=== PATIENT | female | born 1960 | race Hispanic/Latino ===

== ENCOUNTER 2016-08-09 05:49 | Day surgery (SDC) | payer OTHER ==
[~2016-08-09] VITALS: Ht 157.5 cm; Wt 71.5 kg
[2016-08-09] VITALS (8 sets, daily range): BP systolic 104–161; BP diastolic 62–84; PULSE 69–81; RESP 11–22; O2SAT 78–100
[~2016-08-09 05:49] MED LIST: IBUP-1827 PO; Lactated Ringer's 1,000 ML IV SCH; MEDR10TA PO; METH750T3 PO
[2016-08-09] MEDS ORDERED: Dexamethasone 4 mg/mL Inj ONE (05:50)
[2016-08-09] MEDS ORDERED: fentaNYL-PF 50 mCg/mL 2 mL Inj ONE (05:50)
[2016-08-09] MEDS ORDERED: Ondansetron 2 mg/mL 2 mL Inj ONE (05:50)
[2016-08-09] MEDS ORDERED: Propofol 10,000 mCg/mL 20 mL Inj ONE (05:50)
[2016-08-09] MEDS ORDERED: Lidocaine PF 1% 30 mL Inj ONE (05:50)
[2016-08-09 06:51] LABS: BASOPHILS % (AUTO) 0.5 % (0-3); EOSINOPHILS % (AUTO) 2.8 % (0-5); MONOCYTES % (AUTO) 12.9 % (4-12); Mean Corpuscular Hemoglobin 29.7 pg (27.0-35.0); Mean Corpuscular Volume 90.4 fL (81-100); NEUTROPHILS % (AUTO) 48.3 % (40-74); Platelet Count 254 bil/L (150-400)
[2016-08-09] MEDS ORDERED: Levonorgestrel 20 mcg/24 hr IUD INTRAUTERI ONE (06:56)
[2016-08-09] MEDS ORDERED: Lactated Ringer's 500 ML IV PRN (07:24)
[2016-08-09] MEDS ORDERED: Lactated Ringer's 1,000 ML IV SCH (07:24)
--- NOTE | 2016-08-09 07:24 | PCM.HPANE ---
Patient Data Date of Service: Aug 09, 2016 Surgeon Admitting Provider: Attending Provider:Erin Howell MD Primary Care Physician:Iram Arcos Other Provider:Madelin Duran Anesthesia Reason for Visit Simple Endometrial Hyperplasia,Heavy Menses Ht/WT & BMI Height (Feet): 5 Height (Inches): 2.00 Weight (Kilograms): 71.500 Body Mass Index 29.00 Allergies Coded Allergies: lactose (Verified Allergy, Unknown, 08/08/16) Past Anesthesia History Anesthesia History: Denies:: Abnormal Airway, Anesthesia Reactions, Difficult Intubation, Fam Anesthesia Reaction Diabetes History Hx Diabetes?: No MRSA MRSA: No Medications Hypertension Medication: No Home Meds Incl Beta [place]: No Reported Medications Medroxyprogesterone Acetate (Provera)10 Mg [id number] Mg PO DAILY 08/08/16 Methocarbamol 750 Mg [id number] Mg PO QID PRN For Spasm Ref 0 08/08/16 Ibuprofen 600 Mg [id number] Mg PO TID PRN For Pain Ref 0 08/08/16 History History of ENT Problems?: No HEENT History: Denies:: Abnormal Airway Cataracts Difficult Intubation Dysphagia Glaucoma Hearing Problem Sinus Problem TMJ Hx of Heart Problems?: No Cardiovascular History: Positive for:: Hypertension (pt states she has high bp , takes no meds for) Denies:: AICD Edema Heart Murmur Irregular Heartbeat Pacemaker Peripheral Vascular Rheumatic Fever Thrombophlebitis Valvular Heart Disease Hx of Respiratory Problem?: No Respiratory History: Denies:: Asthma COPD Emphysema Oxygen Administration Pneumonia Tuberculosis Use of C-PAP Machine Use of Inhalers / NEBS Hx Neurologic Problems?: Yes Neurological History: Positive for:: Headaches (hx of migraines) Denies:: CVA Multiple Sclerosis Parkinson's Disease Seizures TIA Hx of GI Problems?: No Gastrointestinal History: Denies:: Cirrhosis Gall Bladder Disease Gastrointestinal Bleeding Heartburn Hepatitis Hiatal Hernia Liver Disease Hx of Problems?: No Genitourinary History: Denies:: Kidney Stones Urinary Tract Infection Female Hx: Denies:: Currently Skin History: Denies:: History Skin Disorders? Pressure Ulcers Hx Musculoskeletal Problems?: Yes Musculoskeletal History: Positive for:: Osteoarthritis Denies:: Back Injury Fibromyalgia Joint Replacement Musculoskeletal Trauma Myasthenia Gravis Hx of Psycho/Social Problems?: No Psycho Social History: Denies:: Anxiety Hx Depression Hx Surgeries?: Yes (biopsy, tubal ligation) Hx Any Other Health Problems?: Yes Other History: Denies:: Cancer Thyroid Disease History Blood Transfusions: Positive for:: Accept Blood Products? Denies:: Blood Transfusions Hx Diabetes: No Hx Alcohol Use: NoHx Substance Use: NoHave You Smoked inLast 12 mo: No Stop/Bang S-Snoring: Do You Snore Loudly: No T-Tired: feel tired, fatigued: No O-Obsered: Observed not breath: No P-Blood Pressure: treated: No B- Body Mass Index > 35 kg/m2: No A- Age over 50: Yes N- Neck Large Circumference: No G- Gender Male: No JOSÉ LUIS Total Score: 1 JOSÉ LUIS Risk Assessment: Low Risk, <3 Yes Risk Assessment Category Category 1A: Patient has history of documented sleep apnea, and HAS NOT received any narcotic, sedative or anesthesia administration during this stay. Category 1B: Patient has history of documented sleep apnea, and HAS received any narcotic , sedative or anesthesia administration during this stay Category 2: Patient has SUSPECTED Obstructive Sleep Apnea, and HAS received any narcotic , sedative or anesthesia administration during this stay. Category 3: Patient has SUSPECTED Obstructive Sleep Apnea and HAS NOT received narcotic, sedative or anesthesia administration during this stay. Category 4: Outpatient in Procedural Areas with known sleep apnea or who screen positive for High Risk via the STOP/BANG questionnaire. Exam Exam Vital Signs Vital Signs Date Time Temp Pulse Resp B/P Pulse Ox O2 Delivery O2 Flow Rate FiO2 08/09/16 06:05 36.3 74 16 161/83 99 Room Air General Appearance: Alert, Oriented X3, Cooperative, No Acute Distress HEENT/AIRWAY: MP 2 Lungs: Normal Air Movement Heart: Exam Unremarkable Meds/Labs/Diagnostics Labs Test 08/09/16 06:25 White Blood Count 5.8th/mm3 (3.8-10.1) Red Blood Count 4.71mil/mm3 (3.90-5.20) Hemoglobin 14.0g/dL (12.0-15.6) Hematocrit 42.6% (35.0-46.0) Mean Corpuscular Volume 90.4fL (81-100) Mean Corpuscular Hemoglobin 29.7pg (27.0-35.0) Mean Corpuscular Hemoglobin Concent 32.9% (32.0-37.0) Red Cell Distribution Width 13.7% (12.3-15.4) Platelet Count 254bil/L (150-400) Neutrophils (%) (Auto) 48.3% (40-74) Lymphocytes (%) (Auto) 35.3% (14-46) Monocytes (%) (Auto) 12.9% (4-12) Eosinophils (%) (Auto) 2.8% (0-5) Basophils (%) (Auto) 0.5% (0-3) Plan Impression Patient chart reviewed, patient interviewed and anesthestic plan with risks, benefits, and alternatives discussed, and informed consent obtained. NPO Status: 08/08 at 1900 ASA Physical Status: ASA2 Mod Systemic Disease Anesthetic Plan: GA Bene/Risks/Altern/Consents: Yes HP Complete Prior to Induction: Yes Sundar Wetzel MD Aug 09, 2016 07:24
[2016-08-09] MEDS ORDERED: Ondansetron 2 mg/mL 2 mL Inj IVPUSH PRN ×2 (07:25→08:15)
[2016-08-09] MEDS ORDERED: Labetalol 5 mg/mL 4 mL Inj IV PRN (07:25)
[2016-08-09] MEDS ORDERED: Dexamethasone 4 mg/mL Inj IVPUSH PRN (07:25)
[2016-08-09] MEDS ORDERED: Phenylephrine 10,000 mCg/mL Inj IVPUSH PRN (07:25)
[2016-08-09] MEDS ORDERED: HYDROmorphone 1 mg/mL Inj IVPUSH PRN (07:25)
[2016-08-09] MEDS ORDERED: Atropine 0.4 mg/mL Inj IVPUSH PRN (07:25)
[2016-08-09] MEDS ORDERED: EPHEDrine Sulfate 50 mg/mL Inj IVPUSH PRN (07:25)
[2016-08-09] MEDS ORDERED: hydrALAZINE 20 mg/mL Inj IVPUSH PRN (07:25)
[2016-08-09] MEDS ORDERED: MetoCLOpramide 5 mg/mL 2 mL Inj IVPUSH PRN ×2 (07:25→08:15)
[2016-08-09] MEDS ORDERED: fentaNYL-PF 50 mCg/mL 2 mL Inj IVPUSH PRN (07:25)
[2016-08-09] MEDS ORDERED: oxyCODONE-Acetamin 5-325 mg Tablet PO PRN (08:15)
--- NOTE | 2016-08-09 08:18 | PCM.ANEP1 ---
Post Anesthesia Phase 1 PACU Phase 1 Assessment Date of Service: Aug 09, 2016 Vital Signs Vital Signs Date Time Temp Pulse Resp B/P Pulse Ox O2 Delivery O2 Flow Rate FiO2 08/09/16 08:15 76 12 111/66 97 Nasal Cannula 2 08/09/16 08:09 37.0 78 11 104/62 96 Nasal Cannula 2 08/09/16 06:05 36.3 74 16 161/83 99 Room Air Anesthetic Administered: GA Level of Alertness: Drowsy, not talking Pain: No Nausea or Vomiting: No Oxygen Delivery: Nasal Cannula Lungs: Normal Air Movement Sundar Wetzel MD Aug 09, 2016 08:18
--- NOTE | 2016-08-09 08:18 | PCM.DIGYN ---
Surgical Discharge Instruction Dates of Hospitalization Date of Hospital Admission 08/09/16 Providers Admitting Physician: Primary Care Physician: Iram Arcos Attending Physician: Erin Howell MD Diagnosis at Time of Discharge Diagnosis at time of discharge abnormal vaginal delivery small endometrial polyps Post-operative diagnosis abnormal vaginal delivery small endometrial polyps Problems: Diet Discharge Diet: No restrictions Activity Discharge Activity-General: Try not to overdue Dressing and Incisional Care Hygiene: May shower, NO bathtub, hot tub or whirlpool Additional Instructions Discharge Instructions Please call office or go to ER if heavy vaginal bleeding, severe abdominal pain , foul smelling discharge, fever more than 100.4 or short of breath. Follow Up Plan Follow Up Plan 2 weeks after the procedure Follow-up Provider (F9): Erin Howell MD Follow-up appointment: Weeks (2) Call your provider for: Fever, Chills, Shortness of breath, Heavy vaginal bleeding, Increasing pain Erin Howell MD Aug 09, 2016 08:18
--- NOTE | 2016-08-09 08:46 | PCM.ANEP2 ---
Post Anesthesia Evaluation ASA/CMS Post Anesthesia Date of Service: Aug 09, 2016 VS in Patient's Normal Range?: Yes Resp Stable; Airway Patent?: Yes CV Function & Hydration Stable: Yes Mental Status Recovered?: Yes Pain control Satisfactory?: Yes N/V Control Satisfactory?: Yes Sundar Wetzel MD Aug 09, 2016 08:46
--- NOTE | 2016-08-09 08:48 | DIS ---
[address] [address] DISCHARGE SUMMARY PATIENT: DAMASO AGUILAR : 1960 MR#: [id number] ADMIT: 08/09/2016 JOB ID: [id number] DIS: DATE: 08/09/2016 NARRATIVE: This is a 46-year-old female. She is coming today for a scheduled hysteroscopy, D and C, and Mirena IUD placement for abnormal vaginal bleeding. The procedure was not complicated. The patient tolerated it well. Plan to discharge home when her pain is well controlled, she can ambulate and she can void. Discussed with the patient that she will go back to the office for followup two weeks after the procedure, and she was instructed that if there is heavy vaginal bleeding, severe abdominal pain, foul-smelling discharge, fever more than 100.4, or shortness of breath, she needs to call office or go to the ED for evaluation. Motrin 600 mg prescribed, 30 pills, with no refills p.r.n. for pain. This discussion was done before the procedure and the motor vehicle parts interpreter was present.
--- NOTE | 2016-08-09 09:01 | OP ---
[address] [address] OPERATIVE REPORT PATIENT: DAMASO AGUILAR : 1960 MR#: [id number] ADMIT: 08/09/2016 JOB ID: [id number] DATE OF SURGERY: 08/09/2016 PREOPERATIVE DIAGNOSIS(ES): 1. Abnormal vaginal bleeding. 2. History of simple hyperplasia without atypia. POSTOPERATIVE DIAGNOSIS(ES): 1. Abnormal vaginal bleeding. 2. History of endometrial hyperplasia without atypia. 3. Small uterine polyps. SURGEON: Erin Howell MD INDICATION FOR PROCEDURE: 1. Abnormal vaginal bleeding. 2. History of simple hyperplasia without atypia. This is a previous patient of Dr. Tam. First, she [place] endometrium [place] the [place], showed simple hyperplasia without atypia. She was placed on p.o. progesterone, p.o. Provera since November 2015. Her vaginal bleeding did not improve. She had an office biopsy in April last year which was normal, but again with p.o. medications the bleeding was not improved. The plan was made to have a hysteroscopy, D and C, and consider IUD placement. The patient understood the risk of infection, bleeding, perforation of the uterus, injury to the organs around the uterus, including but not limited to, the bladder, ureters, major vessels, nerves, and bowels. Informed consent signed. PROCEDURE IN DETAIL: The patient was transferred to the operating room. After anesthesia was noted to be adequate, she was placed in the dorsal recumbent position. She was prepared and draped as normal sterile fashion. About 150 cc of urine drained before the procedure. Speculum inserted to vagina to expose the cervix. The cervix was grasped by a single-tooth tenaculum and sounded to 7.5 cm. The cervix was gradually dilated to 8-Bulgarian without difficulty. At this time, the hysteroscope was inserted without difficulty. The uterine cavity was examined. The sheath of the uterus was normal. No fibroid was noticed. There were two very small polyps noticed on the anterior wall close to the fundus, about 3-4 mm in size. No other abnormal finding of her uterine cavity. The hysteroscope was removed. Sharp curettage performed. All specimens sent for pathology. At this time, the scope was reinserted to confirm removal of all the polyps. At this time, the hysteroscopy confirmed there is no remnant of polyps left. The scope was removed. At this time, the Mirena IUD was placed without difficulty. The string was trimmed to 2 cm. The patient tolerated the procedure well. All instrument, needles, laps, and gauzes counted correct twice. The EBL during the procedure was minimal. There is minimal fluid deficit for the scope. The patient was transferred to the recovery room in a stable condition.
--- NOTE | 2016-08-10 14:20 | PATH ---
SURGICAL PATHOLOGY Attending Physician:Erin Howell MD CASE STATUS: Signed Out PATIENT NAME: DAMASO AGUILAR PID: [id number] : 1960 DATE COLLECTED:08/09/2016 15:30 SPECIMEN: Endometrium, Curettage CLINICAL HISTORY: ABNORMAL VAGINAL BLEEDING, SMALL UTERINE POLYP 1). ENDOMETRIAL CURETTING FINAL DIAGNOSIS: Endometrial Curettings: Tissue fragment consistent with benign endometrial polyp, negative for atypia. Fragments of proliferative endometrium with disordered architecture and changes of glandular and stromal breakdown, negative for atypia. ICD10: N92 GROSS DESCRIPTION: The specimen is received in one formalin filled container labeled with the patient's name, sublabeled endometrial curetting" and consists of multiple portions of tissue and blood which aggregate to 1.0 x 0.8 x 0.2 CM. The specimen is entirely submitted in one cassette. 08/09/2016 [facility] ICD-9 CODES: CPT CODES: 1: 06507 Electronically Signed Out Bubba Chew MD [facility] [address], [place] [address] Technical component performed at [facility], [address] [place] [address] Ave[address], [place], [address]
== END 2016-08-09 23:59 | disposition home or self-care (01) ==
LOC: SAS 05:49
PROVIDERS: ATTEND Obstetrics & Gynecology
DX: N85.01 Benign endometrial hyperplasia (principal); N92.0 Excessive and frequent menstruation with regular cycle; I10 Essential (primary) hypertension; M19.90 Unspecified osteoarthritis, unspecified site; Z79.899 Other long term (current) drug therapy
CPT/HCPCS: 36415; 58300; 58558; 85025; J1100; J2250; J2405; J3010; J7120; J7297; J7298